=== PATIENT | male | born 1965 | race Caucasian/White ===

== ENCOUNTER 2018-02-23 13:04 | Inpatient (IN) ==
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
[2018-02-23] MEDS ORDERED: Acetaminophen 325 MG Tablet PO PRN (19:37)
[2018-02-23] MEDS: Morphine Sulfate Inj 2 MG/ML Vial IV.PUSH PRN (20:41)
[2018-02-23] MEDS: Lisinopril 5 MG Tablet PO SCH (20:43)
[2018-02-23] MEDS: Sod Chloride 0.9% Inj 1,000 ML IV.CONT SCH (20:43)
[2018-02-23] MEDS: Senna/Docusate Sodium 8.6/50 MG Tablet PO SCH (20:43)
[2018-02-23] MEDS: Piperacil/Tazo 3.375 GM Premix 50 ML IV.SIG SCH (21:59)
[2018-02-24] MEDS ORDERED: Metoprolol Tartrate 25 MG Tablet PO ONE (02:24)
[2018-02-24] MEDS ORDERED: Chlorhexidine Gluconate 2% 1 Pack (2 Cloths) TOPICAL ONE (02:24)
[2018-02-24] MEDS ORDERED: Sodium Chlor 0.9% Inj 500 ML IV.SIG SCH (03:00)
[2018-02-24] MEDS: Morphine Sulfate Inj 2 MG/ML Vial IV.PUSH PRN ×2 (03:09→08:34)
[2018-02-24] MEDS: Piperacil/Tazo 3.375 GM Premix 50 ML IV.SIG SCH ×3 (03:09→15:40)
[2018-02-24] MEDS: Sod Chloride 0.9% Inj 1,000 ML IV.CONT SCH ×3 (03:10→13:17)
[2018-02-24 05:39] LABS: Baso # (Auto) 0.1 th/mm3 (0.0-0.2); Baso % (Auto) 0.6 % (0.0-2.0); Eos # (Auto) 0.1 th/mm3 (0.0-0.4); Eos % (Auto) 0.5 % (0.0-4.0); Hematocrit 40.4 % (39.0-51.0); Hemoglobin 13.8 gm/dL (13.0-17.0); Lymph # (Auto) 1.1 th/mm3 (1.0-4.8); Lymph % (Auto) 9.8 % (9.0-44.0); Mean Corpuscular Hemoglobin 31.1 pg (27.0-34.0); Mean Corpuscular Volume 91.4 fL (80.0-100.0); Mean Platelet Volume 8.3 fL (7.0-11.0); Mono # (Auto) 0.9 th/mm3 (0.0-0.9); Mono % (Auto) 8.6 % (0.0-8.0); Neut # (Auto) 8.9 th/mm3 (1.8-7.7); Neut % (Auto) 80.5 % (16.0-70.0); Platelet Count 176 th/mm3 (150-450); Red Blood Count 4.43 mil/mm3 (4.50-5.90); Red Cell Distribution Width 14.2 % (11.6-17.2); White Blood Count 11.1 th/mm3 (4.0-11.0)
[2018-02-24 06:12] LABS: Albumin 3.1 g/dL (3.4-5.0); Anion Gap 12 meq/L (5-15); Aspartate Aminotransferase 17 U/L (15-37); Blood Urea Nitrogen 15 mg/dL (7-18); Calcium 8.1 mg/dL (8.5-10.1); Carbon Dioxide 21.4 meq/L (21.0-32.0); Chloride 110 meq/L (98-107); Glomerular Filtration Rate 84 mL/min (>89); Glucose,Random 102 mg/dL (74-106); Potassium 3.8 meq/L (3.5-5.1); Sodium 143 meq/L (136-145)
[2018-02-24 06:14] LABS: Alanine Aminotransferase 31 U/L (12-78)
[2018-02-24 06:16] LABS: Alkaline Phosphatase 70 U/L (45-117); Total Protein 6.7 g/dL (6.4-8.2)
[2018-02-24] MEDS: Baclofen 10 MG Tablet PO SCH ×3 (08:31→17:12)
[2018-02-24] MEDS: Gabapentin 100 MG Capsule PO SCH ×3 (08:31→17:12)
[2018-02-24] MEDS: Senna/Docusate Sodium 8.6/50 MG Tablet PO SCH ×2 (08:32→20:17)
[2018-02-24] MEDS: Lisinopril 5 MG Tablet PO SCH ×2 (08:33→20:17)
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
[2018-02-24] MEDS ORDERED: Morphine Inj 4 MG/ML Vial IV.PUSH ONE (11:00)
--- NOTE | 2018-02-24 11:33 | P.CONGI ---
History of Present Illness Consult date: 02/24/18 Consult reason: Hyperbilirubinemia ultrasound of the gallbladder abnormal. Chief complaint: ABD PAIN History of Present Illness: This is a 53-year-old male who came to the hospital on 02/23/2018 with right upper quadrant abdominal pain for the past 3 days. Patient states that he was in his usual state of health up until this point and he had acute onset of pressure sensation which he describes as feeling "locked up". He also denies any bowel movement for the past 3 days and is positive for some fever and chills. Patient denies any obvious bleeding, hematemesis or dyspepsia but does note some nausea without vomiting. According to the patient and the record he has a history of a left CVA with right sided paralysis and his fair to poor historian with some of his timing and situation. Patient initially stated not passing gas but then notes that he is passing small amounts. He also was on Coumadin therapy but stopped taking medications approximately 4 months ago due to the fact that he was taking way too many meds. Current labs show WBC count with mild leukocytosis, 11.1, hemoglobin 13.8, bilirubin 2.2, AST [address] scan shows possible cholecystitis and surgical consult is pending. Patient states EGD around 2001 but no previous colonoscopy and states that he refuses to have one. Patient has no family history of colon cancer. There is currently no family in the room but according to the record there is a girlfriend who has been assisting in his care. Gastroenterology was consulted to assist with his abnormal gallbladder ultrasound as well as hyperbilirubinemia. <Mellissa Iqbal - Last Filed: 02/24/18 11:21> Review of Systems All other systems reviewed negative except as stated in HPI <Mellissa Iqbal - Last Filed: 02/24/18 11:21> PMFSH - History History Provided By: Patient - Medical History Medical History: Medical History (Last Reviewed 02/24/18 @ 09:09 by YAMILE Christianson) CVA (cerebral vascular accident) HTN (hypertension) Myocardial infarct - Surgical History Surgical History: Surgical History (Last Reviewed 02/24/18 @ 09:09 by YAMILE Christianson) History of surgery of liver - Tobacco History Second Hand Smoke Exposure: No Smoking Status: Never smoker - Alcohol History How Often Do You Have a Drink Containing Alcohol: Never - Substance Use History Substance History: No History of Abuse <Mellissa Iqbal - Last Filed: 02/24/18 11:21> - Medical History Medical History: Medical History (Last Reviewed 02/24/18 @ 09:09 by YAMILE Christianson) CVA (cerebral vascular accident) HTN (hypertension) Myocardial infarct - Surgical History Surgical History: Surgical History (Last Reviewed 02/24/18 @ 09:09 by YAMILE Christianson) History of surgery of liver <Darnell Edmond - Last Filed: 02/24/18 16:06> Medications and Allergies Active Medications: Active Medications Acetaminophen (Tylenol) 650 mg PO Q4H PRN PRN Reason: Temp > 100.4 Baclofen (Lioresal) 5 mg PO TID [facility] Last Admin: 02/24/18 08:31 Dose: 5 mg Carvedilol (Coreg) 3.125 mg PO BID [facility] Last Admin: 02/24/18 08:33 Dose: 3.125 mg Enalaprilat (Vasotec Inj) 1.25 mg IV.PUSH Q8H PRN PRN Reason: SBP>180, DBP>95 Gabapentin (Neurontin) 100 mg PO TID [facility] Last Admin: 02/24/18 08:31 Dose: 100 mg Sodium Chloride (Ns Inj) 1,000 mls @ 130 mls/hr IV.CONT .Q7H42M [facility] Last Admin: 02/24/18 08:30 Dose: Not Given Piperacillin/Tazobactam/Dextrose (Zosyn 3.375 Gm Premix) 50 mls @ 100 mls/hr IV.SIG Q6H [facility] Last Infusion: 02/24/18 10:37 Dose: Infused Lactated Ringer's (Lr 1000 Ml Inj) 1,000 mls @ 30 mls/hr IV.SIG .Q24H [facility] Stop: 02/25/18 02:29 Last Admin: 02/24/18 03:11 Dose: Not Given Sodium Chloride (Ns Inj) 500 mls @ 30 mls/hr IV.SIG .Q10H [facility] Last Admin: 02/24/18 03:12 Dose: Not Given Lisinopril (Prinivil) 5 mg PO BID [facility] Last Admin: 02/24/18 08:33 Dose: 5 mg Morphine Sulfate (Morphine Inj) 2 mg IV.PUSH Q4H PRN PRN Reason: PAIN SCALE 7 TO 10 SEVERE Last Admin: 02/24/18 08:34 Dose: 2 mg Ondansetron HCl (Zofran Inj) 4 mg IV.PUSH Q6H PRN PRN Reason: NAUSEA OR VOMITING Last Admin: 02/23/18 20:42 Dose: 4 mg Senna/Docusate Sodium (Evangelina-Colace) 1 tab PO BID [facility] Last Admin: 02/24/18 08:32 Dose: 1 tab <Mellissa Iqbal M - Last Filed: 02/24/18 11:21> Active Medications: Active Medications Acetaminophen (Tylenol) 650 mg PO Q4H PRN PRN Reason: Temp > 100.4 Baclofen (Lioresal) 5 mg PO TID [facility] Last Admin: 02/24/18 13:14 Dose: Not Given Carvedilol (Coreg) 3.125 mg PO BID [facility] Last Admin: 02/24/18 08:33 Dose: 3.125 mg Enalaprilat (Vasotec Inj) 1.25 mg IV.PUSH Q8H PRN PRN Reason: SBP>180, DBP>95 Last Admin: 02/24/18 15:41 Dose: 1.25 mg Gabapentin (Neurontin) 100 mg PO TID [facility] Last Admin: 02/24/18 13:18 Dose: Not Given Sodium Chloride (Ns Inj) 1,000 mls @ 130 mls/hr IV.CONT .Q7H42M [facility] Last Admin: 02/24/18 13:17 Dose: 100 mls/hr Piperacillin/Tazobactam/Dextrose (Zosyn 3.375 Gm Premix) 50 mls @ 100 mls/hr IV.SIG Q6H [facility] Last Admin: 02/24/18 15:40 Dose: 100 mls/hr Lactated Ringer's (Lr 1000 Ml Inj) 1,000 mls @ 30 mls/hr IV.SIG .Q24H [facility] Stop: 02/25/18 02:29 Last Admin: 02/24/18 03:11 Dose: Not Given Sodium Chloride (Ns Inj) 500 mls @ 30 mls/hr IV.SIG .Q10H [facility] Last Admin: 02/24/18 03:12 Dose: Not Given Lisinopril (Prinivil) 5 mg PO BID [facility] Last Admin: 02/24/18 08:33 Dose: 5 mg Morphine Sulfate (Morphine Inj) 4 mg IV.PUSH Q4H PRN PRN Reason: Pain 7 to 10 Last Admin: 02/24/18 15:41 Dose: 4 mg Morphine Sulfate (Morphine Inj) 2 mg IV.PUSH Q4H PRN PRN Reason: Pain 3 to 6 Ondansetron HCl (Zofran Inj) 4 mg IV.PUSH Q6H PRN PRN Reason: NAUSEA OR VOMITING Last Admin: 02/23/18 20:42 Dose: 4 mg Senna/Docusate Sodium (Evangelina-Colace) 1 tab PO BID [facility] Last Admin: 02/24/18 08:32 Dose: 1 tab <Darnell Edmond - Last Filed: 02/24/18 16:06> Allergies Allergy/AdvReac Type Severity Reaction Status Date / Time No Known Allergies Allergy Unverified 02/23/18 13:12 Home Medications Medication Instructions Recorded Confirmed Type atorvastatin 40 mg PO DAILY 02/23/18 02/23/18 History baclofen 5 mg PO TID 02/23/18 02/23/18 History carvedilol 3.125 mg PO BID 02/23/18 02/23/18 History fluoxetine 40 mg PO DAILY 02/23/18 02/23/18 History gabapentin 100 mg PO TID 02/23/18 02/23/18 History lisinopril 5 mg PO BID 02/23/18 02/23/18 History warfarin 4 mg PO DAILY 02/23/18 02/23/18 History Exam Vital signs: Vital Signs 02/23/18 17:30 02/23/18 20:00 02/24/18 00:00 Temperature 97.8 F 97.4 F L 97.4 F L Pulse Rate 108 H 106 H 87 Respiratory Rate 20 18 18 Blood Pressure 185/108 H 166/98 H 149/87 H Pulse Oximetry 95 97 97 02/24/18 04:00 02/24/18 08:00 Temperature 97.4 F L 99.4 F Pulse Rate 88 102 H Respiratory Rate 18 20 Blood Pressure 142/84 H 160/96 H Pulse Oximetry 97 92 L Intake & Output 09/03/18 09/04/18 09/04/18 18:59 06:59 18:59 Intake Total 1100 / 1100 50 / 50 Balance 1100 / 1100 50 / 50 Weight 86.5 kg Intake: IV 1100 / 1100 50 / 50 NS Inj 1,000 ML @ 130 mls/hr IV 1000 / 1000 .CONT .Q7H42M [facility] Rx#:[id number] Zosyn 3.375 GM Premix 50 ML @ 100 / 100 50 / 50 100 mls/hr IV.SIG Q6H [facility] Rx#: [id number] Other: # Voids 2 Weight On Admission 86.5 kg - Constitutional mild distress, obese, disheveled - Routine HEENT Exam ENT: Present: mucous membranes dry - Routine Respiratory Exam Present: accessory muscle use (Even, unlabored at rest) - Routine Cardiovascular Exam Present: S1, S2 - Routine Abdominal Exam Present: distended (Mild, tall, soft bowel sounds all 4 quadrants, right upper quadrant tenderness to light palpation) <Mellissa Iqbal - Last Filed: 02/24/18 11:21> Vital signs: Vital Signs 02/23/18 17:30 02/23/18 20:00 02/24/18 00:00 Temperature 97.8 F 97.4 F L 97.4 F L Pulse Rate 108 H 106 H 87 Respiratory Rate 20 18 18 Blood Pressure 185/108 H 166/98 H 149/87 H Pulse Oximetry 95 97 97 02/24/18 04:00 02/24/18 08:00 02/24/18 12:00 Temperature 97.4 F L 99.4 F 98.2 F Pulse Rate 88 102 H 103 H Respiratory Rate 18 20 20 Blood Pressure 142/84 H 160/96 H 174/98 H Pulse Oximetry 97 92 L 92 L Intake & Output 02/23/18 02/24/18 02/24/18 18:59 06:59 18:59 Intake Total 1100 / 1100 1050 / 1050 Balance 1100 / 1100 1050 / 1050 Weight 86.5 kg Intake: IV 1100 / 1100 1050 / 1050 NS Inj 1,000 ML @ 130 mls/hr IV 1000 / 1000 1000 / 1000 .CONT .Q7H42M [facility] Rx#:[id number] Zosyn 3.375 GM Premix 50 ML @ 100 / 100 50 / 50 100 mls/hr IV.SIG Q6H [facility] Rx#: [id number] Other: # Voids 2 Weight On Admission 86.5 kg <FeliRhodajason Shannon - Last Filed: 02/24/18 16:06> Results - Labs CBC & Chem 7: 02/24/18 04:13 02/24/18 04:13 Labs: Laboratory Results - last 24 hr 02/24/18 02/24/18 04:13 04:13 WBC 11.1 H RBC 4.43 L Hgb 13.8 D Hct 40.4 MCV 91.4 MCH 31.1 MCHC 34.0 RDW 14.2 Plt Count 176 MPV 8.3 Neut % (Auto) 80.5 H Lymph % (Auto) 9.8 [place] % (Auto) 8.6 H Eos % (Auto) 0.5 Baso % (Auto) 0.6 Neut # (Auto) 8.9 H Lymph # (Auto) 1.1 [place] # (Auto) 0.9 Eos # (Auto) 0.1 Baso # (Auto) 0.1 WBC Differential . Differential Comment Auto diff final Sodium 143 Potassium 3.8 Chloride 110 H Carbon Dioxide 21.4 Anion Gap 12 BUN 15 Creatinine 0.93 Estimated GFR 84 L Random Glucose 102 Calcium 8.1 L Total Bilirubin 2.2 H AST 17 ALT 31 Alkaline Phosphatase 70 Total Protein 6.7 D Albumin 3.1 L <Mellissa Iqbal - Last Filed: 02/24/18 11:21> - Labs CBC & Chem 7: 02/24/18 04:13 02/24/18 04:13 Labs: Laboratory Results - last 24 hr 02/24/18 02/24/18 04:13 04:13 WBC 11.1 H RBC 4.43 L Hgb 13.8 D Hct 40.4 MCV 91.4 MCH 31.1 MCHC 34.0 RDW 14.2 Plt Count 176 MPV 8.3 Neut % (Auto) 80.5 H Lymph % (Auto) 9.8 [place] % (Auto) 8.6 H Eos % (Auto) 0.5 Baso % (Auto) 0.6 Neut # (Auto) 8.9 H Lymph # (Auto) 1.1 [place] # (Auto) 0.9 Eos # (Auto) 0.1 Baso # (Auto) 0.1 WBC Differential . Differential Comment Auto diff final Sodium 143 Potassium 3.8 Chloride 110 H Carbon Dioxide 21.4 Anion Gap 12 BUN 15 Creatinine 0.93 Estimated GFR 84 L Random Glucose 102 Calcium 8.1 L Total Bilirubin 2.2 H AST 17 ALT 31 Alkaline Phosphatase 70 Total Protein 6.7 D Albumin 3.1 L - Imaging Impressions Cholangiopancreatography MRI 02/24/18 00:00 CONCLUSION: 1. The gallbladder is mildly distended with some gallbladder wall thickening. No adjacent inflammatory changes are demonstrated. 2. No definite gallstones or biliary tract obstruction. 3. The rest the examination is grossly unremarkable. <Darnell Edmond - Last Filed: 02/24/18 16:06> Assessment and Plan (1) Right upper quadrant abdominal pain Status: Acute Code(s): R10.11 - Right upper quadrant pain (2) Abnormal CT scan, gallbladder Status: Acute Code(s): R93.2 - Abnormal findings on diagnostic imaging of liver and biliary tract (3) Cholecystitis Status: Acute Code(s): K81.9 - Cholecystitis, unspecified - Plan right upper quadrant abdominal pain for the past 3 days. Patient states that he was in his usual state of health up until this point and he had acute onset of pressure sensation which he describes as feeling "locked up". He also denies any bowel movement for the past 3 days and is positive for some fever and chills. Constipation, acute no bowel movement in the last 3 days patient denies any obvious bleeding, hematemesis or dyspepsia but does note some nausea without vomiting. history of a left CVA with right sided paralysis and his fair to poor historian with some of his timing and situation. Patient initially stated not passing gas but then notes that he is passing small amounts. He also was on Coumadin therapy but stopped taking medications approximately 4 months ago due to the fact that he was taking way too many meds. Current labs show WBC count with mild leukocytosis, 11.1, hemoglobin 13.8, bilirubin 2.2, AST [address] scan shows possible cholecystitis and surgical consult is pending. Patient states EGD around 2001 but no previous colonoscopy and states that he refuses to have one. Patient has no family history of colon cancer. There is currently no family in the room but according to the record there is a girlfriend who has been assisting in his care. Gastroenterology was consulted to assist with his abnormal gallbladder ultrasound as well as hyperbilirubinemia. Cholelithiasis, abnormal ultrasound gallbladder possible cholecystitis. Could be related to stones, possibly impacted. Appreciate GS consult. Hyperbilirubinemia, possibly related to obstruction Plan Diet per attending, recommend clear liquids for now MRCP pending Zofran Zosyn per attending Monitor labs with special attention to bilirubin and hemoglobin as well as WBC count. Further recommendations to follow after MRCP patient may need ERCP Patient was seen per myself and Dr. Edmond, note was written on his behalf <Mellissa Iqbal - Last Filed: 02/24/18 11:21> (1) Right upper quadrant abdominal pain Status: Acute Code(s): R10.11 - Right upper quadrant pain (2) Abnormal CT scan, gallbladder Status: Acute Code(s): R93.2 - Abnormal findings on diagnostic imaging of liver and biliary tract (3) Cholecystitis Status: Acute Code(s): K81.9 - Cholecystitis, unspecified - Attending Attestation Seen and examined, plan as above, will follow up with you. Will check MRCP results. Further recommendations to follow. <Darnell Edmond - Last Filed: 02/24/18 16:06>
[2018-02-24] MEDS ORDERED: Morphine Inj 4 MG/ML Vial IV.PUSH PRN (12:12)
--- NOTE | 2018-02-24 12:13 | ECG ---
Date Performed: 02/24/2018 Time Performed: 10:15:31 PTAGE: 53 years EKG: SINUS TACHYCARDIA WITH FIRST DEGREE AV BLOCK RIGHT ATRIAL ENLARGEMENT LEFT ATRIAL ENLARGEME NT NONSPECIFIC INTRAVENTRICULAR CONDUCTION DELAY RIGHT AXIS DEVIATION ABNORMAL ECG NO PREVIOUS TRACING DOCTOR: Oscar Le Interpretating Date/Time 02/24/2018 12:12:16
--- NOTE | 2018-02-24 12:18 | P.PNIM ---
Subjective Interval history: Patient's primary complaint is right upper quadrant abdominal pain. Ultrasound gallbladder pending. No nausea or vomiting. No appetite. Physical Exam Vital signs: Vital Signs 02/23/18 17:30 02/23/18 20:00 02/24/18 00:00 Temperature 97.8 F 97.4 F L 97.4 F L Pulse Rate 108 H 106 H 87 Respiratory Rate 20 18 18 Blood Pressure 185/108 H 166/98 H 149/87 H Pulse Oximetry 95 97 97 02/24/18 04:00 02/24/18 08:00 Temperature 97.4 F L 99.4 F Pulse Rate 88 102 H Respiratory Rate 18 20 Blood Pressure 142/84 H 160/96 H Pulse Oximetry 97 92 L Intake & Output 02/23/18 02/24/18 02/24/18 18:59 06:59 18:59 Intake Total 1100 / 1100 50 / 50 Balance 1100 / 1100 50 / 50 Weight 86.5 kg Intake: IV 1100 / 1100 50 / 50 NS Inj 1,000 ML @ 130 mls/hr IV 1000 / 1000 .CONT .Q7H42M [facility] Rx#:[id number] Zosyn 3.375 GM Premix 50 ML @ 100 / 100 50 / 50 100 mls/hr IV.SIG Q6H [facility] Rx#: [id number] Other: # Voids 2 Weight On Admission 86.5 kg Narrative: GENERAL: NAD, A&Ox3 HEAD: Normocephalic. NECK: Supple, trachea midline. No lymphadenopathy. EYES: No scleral icterus. No injection or drainage. CARDIOVASCULAR: Regular rate and rhythm without murmurs, gallops, or rubs. RESPIRATORY: Breath sounds equal bilaterally. No accessory muscle use. GASTROINTESTINAL: Abdomen soft, nondistended. Right upper quadrant abdominal pain with tenderness. MUSCULOSKELETAL: No cyanosis, or edema. SKIN: Warm and dry. NEURO: No focal neurological deficits. Results - Labs CBC & Chem 7: 02/24/18 04:13 02/24/18 04:13 Laboratory Results - last 24 hr 02/24/18 02/24/18 04:13 04:13 WBC 11.1 H RBC 4.43 L Hgb 13.8 D Hct 40.4 MCV 91.4 MCH 31.1 MCHC 34.0 RDW 14.2 Plt Count 176 MPV 8.3 Neut % (Auto) 80.5 H Lymph % (Auto) 9.8 [place] % (Auto) 8.6 H Eos % (Auto) 0.5 Baso % (Auto) 0.6 Neut # (Auto) 8.9 H Lymph # (Auto) 1.1 [place] # (Auto) 0.9 Eos # (Auto) 0.1 Baso # (Auto) 0.1 WBC Differential . Differential Comment Auto diff final Sodium 143 Potassium 3.8 Chloride 110 H Carbon Dioxide 21.4 Anion Gap 12 BUN 15 Creatinine 0.93 Estimated GFR 84 L Random Glucose 102 Calcium 8.1 L Total Bilirubin 2.2 H AST 17 ALT 31 Alkaline Phosphatase 70 Total Protein 6.7 D Albumin 3.1 L Assessment and Plan - Assessment (1) Right upper quadrant abdominal pain Code(s): R10.11 - Right upper quadrant pain Status: Acute (2) Abnormal CT scan, gallbladder Code(s): R93.2 - Abnormal findings on diagnostic imaging of liver and biliary tract Status: Acute (3) CVA, old, dysarthria Code(s): I69.322 - Dysarthria following cerebral infarction Status: Chronic (4) Cardiac disease Code(s): I51.9 - Heart disease, unspecified Status: Chronic (5) HTN (hypertension) Code(s): I10 - Essential (primary) hypertension Status: Chronic - Plan 53-year-old male admitted secondary right upper quadrant abdominal pain Right upper quadrant abdominal pain SIRS Suspected cholecystitis Leukocytosis Surgeons following GI following Continue Zosyn Continue IV fluids Morphine for pain Ultrasound of gallbladder pending HIDA scan pending History of CVA Right hemiplegia Supportive care Continue baseline treatments including baclofen and gabapentin Therapy consulted Cardiomyopathy Left bundle branch block Follow on telemetry Continue lisinopril and carvedilol Patient has been noncompliant with Coumadin Hypertension Continue baseline treatment Follow blood pressures Adjust treatments as needed DVT prophylaxis SCD's (5) HTN (hypertension) Qualifiers: Hypertension type: essential hypertension Qualified Code(s): I10 - Essential (primary) hypertension
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
[2018-02-24] MEDS: Morphine Inj 4 MG/ML Vial IV.PUSH PRN ×2 (15:41→20:18)
[2018-02-25] MEDS: Morphine Inj 4 MG/ML Vial IV.PUSH PRN ×4 (00:05→20:37)
[2018-02-25] MEDS: Piperacil/Tazo 3.375 GM Premix 50 ML IV.SIG SCH ×5 (00:07→21:48)
[2018-02-25] MEDS: Sod Chloride 0.9% Inj 1,000 ML IV.CONT SCH ×4 (00:07→20:31)
[2018-02-25 08:15] LABS: Baso % (Auto) 0.2 % (0.0-2.0); Eos # (Auto) 0.1 th/mm3 (0.0-0.4); Eos % (Auto) 0.9 % (0.0-4.0); Hematocrit 37.7 % (39.0-51.0); Lymph # (Auto) 0.9 th/mm3 (1.0-4.8); Lymph % (Auto) 9.2 % (9.0-44.0); Mean Corpuscular HGB Conc 34.5 % (32.0-36.0); Mean Platelet Volume 8.4 fL (7.0-11.0); Mono # (Auto) 0.9 th/mm3 (0.0-0.9); Mono % (Auto) 8.8 % (0.0-8.0); Neut # (Auto) 8.3 th/mm3 (1.8-7.7); Neut % (Auto) 80.9 % (16.0-70.0); Platelet Count 165 th/mm3 (150-450); Red Blood Count 4.19 mil/mm3 (4.50-5.90); Red Cell Distribution Width 14.4 % (11.6-17.2); White Blood Count 10.2 th/mm3 (4.0-11.0)
[2018-02-25] MEDS: Baclofen 10 MG Tablet PO SCH ×3 (08:16→18:26)
[2018-02-25] MEDS: Lisinopril 5 MG Tablet PO SCH ×2 (08:16→20:29)
[2018-02-25] MEDS: Senna/Docusate Sodium 8.6/50 MG Tablet PO SCH ×2 (08:16→20:30)
[2018-02-25] MEDS: Gabapentin 100 MG Capsule PO SCH ×3 (08:16→18:27)
[2018-02-25 08:46] LABS: Alanine Aminotransferase 27 U/L (12-78); Albumin 2.6 g/dL (3.4-5.0); Anion Gap 11 meq/L (5-15); Aspartate Aminotransferase 15 U/L (15-37); Blood Urea Nitrogen 15 mg/dL (7-18); Calcium 7.5 mg/dL (8.5-10.1); Carbon Dioxide 23.4 meq/L (21.0-32.0); Chloride 108 meq/L (98-107); Glomerular Filtration Rate Greater Than 89 mL/min (>89); Glucose,Random 95 mg/dL (74-106); Potassium 3.6 meq/L (3.5-5.1); Sodium 142 meq/L (136-145)
[2018-02-25 08:48] LABS: Alkaline Phosphatase 58 U/L (45-117); Total Protein 6.2 g/dL (6.4-8.2)
[2018-02-25] MEDS ORDERED: Bupivacaine/Epinephrine Inj 0.25% 50 ML Vial ONE (09:05)
[2018-02-25] MEDS ORDERED: fentaNYL Citrate Inj 100 MCG/2 ML Ampul ONE (09:18)
[2018-02-25] MEDS ORDERED: Lidocaine PF 1% Inj 5 ML Syringe INFILTRATN ONE (10:30)
[2018-02-25] MEDS ORDERED: Lidocaine PF 1% Inj 5 ML Vial ONE (10:30)
[2018-02-25] MEDS ORDERED: Phenylephrine/NS 1000 MCG/10ML Syringe IV.PUSH ONE (10:30)
[2018-02-25] MEDS ORDERED: Neostigmine Inj 5 MG/5 ML Syringe IV.PUSH ONE (12:00)
[2018-02-25] MEDS ORDERED: Glycopyrrolate Inj 1 MG/5 ML Syringe IV.PUSH ONE (12:00)
--- NOTE | 2018-02-25 12:42 | MP ---
cc: Cedric Knox MD DATE OF OPERATION: 02/25/2018 PREOPERATIVE DIAGNOSES: 1. Acute cholecystitis. 2. Umbilical hernia. 3. Elevated total bilirubin with normal magnetic resonance cholangiopancreatography. POSTOPERATIVE DIAGNOSES: 1. Acute cholecystitis. 2. Umbilical hernia. 3. Elevated total bilirubin with normal magnetic resonance cholangiopancreatography. PROCEDURE PERFORMED: 1. Laparoscopic cholecystectomy. 2. Primary umbilical hernia repair. 3. Liver biopsy. SURGEON: Cedric Knox MD ANESTHESIA: General endotracheal. COMPLICATIONS: None. ESTIMATED BLOOD LOSS: 20 mL INDICATIONS FOR PROCEDURE: Mr. Mckeon is a pleasant 53-year-old gentleman who presented to [facility] with complaints of epigastric, right upper quadrant abdominal pain. He was worked up and found to have acute cholecystitis by imaging. He was noted to have elevated total bilirubin. The bilirubin was 1.8, it climbed up to 2.2. He had an MRCP, which demonstrated no evidence of biliary obstruction. Because of this, I recommended a liver biopsy to figure out why his bilirubin was continuing to climb. Risks and benefits of a laparoscopic cholecystectomy, umbilical hernia repair and liver biopsy was discussed with him. He was agreeable. DETAILS OF PROCEDURE: The patient was identified, brought to the operating room, placed supine on the operating table. After adequate general endotracheal anesthesia was achieved, the abdomen was prepped and draped in standard surgical fashion. Infraumbilical space was anesthetized with 0.25% Marcaine. Infraumbilical incision was made. Dissection was carried down through subcutaneous tissue and the umbilical hernia sac. Umbilical hernia sac was then opened. The finger was then placed in the peritoneal cavity without difficulty. Balloon trocar was inserted and the abdomen was insufflated to 15 mmHg using CO2 gas. Next, two 5 mm trocars were placed in the right upper quadrant after anesthetizing skin and subcutaneous tissue with 0.25% Marcaine. A distended erythematous gallbladder was immediately identified. The gallbladder was noted to have a significant omental adhesions on the underside, indicating acute inflammatory change. These were taken down with blunt and electrocautery dissection. Gallbladder was then clearly visualized. Gallbladder neck was then carefully dissected. Cystic artery and cystic duct were dissected out; clearly identified in 2 planes. Once they were confirmed in 2 planes, they were clipped twice proximally, once distally and then divided. Gallbladder was then dissected out of the hepatic fossa using electrocautery Bovie. Liver bed was slightly oozy due to the acute inflammatory nature of the gallbladder. Gallbladder was removed and placed into an Endopouch bag and brought out through the infraumbilical port. Gallbladder was inspected and noted to be distended, edematous, erythematous and clips were in place in the cystic duct stump was without evidence of leakage of bile. Gallbladder was sent to pathology for analysis. Next, the abdominal cavity was re-visualized. Bleeding points in the liver were controlled with electrocautery Bovie. The abdominal cavity was then rinsed out with normal saline solution. Benny procoagulant was then placed into the liver bed and there was no evidence of bleeding through the Benny. Clips were inspected on the cystic artery and cystic duct stump. There was no evidence of leakage of bile and no bleeding. Next, the biopsy gun was used to perform a core needle biopsy of the right lobe of the liver. This was performed through one of the 5 mm port sites. Biopsy site bleeding was controlled with electrocautery Bovie. Specimen was sent to pathology for analysis. Next abdominal cavity was visualized. No gross abnormalities were then noted. Biopsy site was reinspected and there was no evidence of bleeding. The liver bed was inspected. There was no evidence of bleeding. All ports were then removed under direct vision. Attention was now directed to repair the umbilical hernia. Umbilical hernia sac was dissected off and excised. The fascia was cleaned off circumferentially. Fascia was then closed primarily using a 0-Prolene suture, interrupted x3. Subcutaneous tissue was then irrigated, injected with additional local anesthetic and then skin was closed with 4-0 Vicryl. The patient tolerated the procedure well, was awakened and brought to the recovery room in stable condition. Cedric MD NATALIE Mauricio/gretchen , 12:23 PM , 12:31 PM
[2018-02-25] MEDS ORDERED: *morphine SULFATE 4 MG/ML PERIprocedure ONLY ONE ×2 (13:28→13:38)
[2018-02-25] MEDS ORDERED: *Meperidine Inj 25 MG/ML Vial PERIprocedural Use ONLY ONE (13:47)
--- NOTE | 2018-02-25 17:10 | P.PNIM ---
Subjective Interval history: Patient is status post cholecystectomy. He is lethargic postop but doing well otherwise. No complaints. Clinical status discussed with his . Physical Exam Vital signs: Vital Signs 02/24/18 17:51 02/24/18 18:43 02/24/18 20:00 Temperature 97.3 F L Pulse Rate 107 H 109 H Respiratory Rate 18 Blood Pressure 174/94 H 166/102 H Pulse Oximetry 93 L 95 02/25/18 00:00 02/25/18 04:00 02/25/18 08:00 Temperature 99.4 F 98.2 F 98.0 F Pulse Rate 108 H 94 H 104 H Respiratory Rate 18 18 19 Blood Pressure 164/99 H 160/90 H 151/103 H Pulse Oximetry 93 L 95 91 L 02/25/18 09:44 02/25/18 12:33 02/25/18 12:45 Temperature 98.4 F Pulse Rate 84 75 Respiratory Rate 20 22 Blood Pressure 141/82 H 128/79 Pulse Oximetry 93 L 93 L 94 L 02/25/18 13:00 02/25/18 13:15 02/25/18 13:30 Temperature Pulse Rate 71 74 86 Respiratory Rate 20 19 20 Blood Pressure 129/77 141/84 H 152/94 H Pulse Oximetry 96 97 95 02/25/18 13:31 02/25/18 13:40 02/25/18 13:45 Temperature Pulse Rate 85 Respiratory Rate 14 16 20 Blood Pressure 135/81 Pulse Oximetry 93 L 02/25/18 14:00 Temperature 98 F Pulse Rate 75 Respiratory Rate 18 Blood Pressure 130/76 Pulse Oximetry 96 Intake & Output 02/24/18 02/25/18 02/25/18 18:59 06:59 18:59 Intake Total 1100 / 1100 1100 / 1100 2800 / 2800 Output Total 20 / 20 Balance 1100 / 1100 1100 / 1100 2780 / 2780 Weight 86.5 kg Intake: IV 1100 / 1100 1100 / 1100 2100 / 2100 NS Inj 1,000 ML @ 130 mls/hr IV 1000 / 1000 1000 / 1000 1000 / 1000 .CONT .Q7H42M [facility] Rx#:[id number] LR 1000 mL Inj 1,000 ML @ 30 1000 / 1000 mls/hr IV.SIG .Q24H [facility] Rx#: [id number] Zosyn 3.375 GM Premix 50 ML @ 100 / 100 100 / 100 100 / 100 100 mls/hr IV.SIG Q6H [facility] Rx#: [id number] Oral 0 / 0 Anesthesia Amount 700 / 700 Output: Estimated Blood Loss 20 / 20 Other: # Voids 3 2 # Incontinent Voids 1 # Bowel Movements 0 Narrative: GENERAL: NAD, A&Ox3 HEAD: Normocephalic. NECK: Supple, trachea midline. No lymphadenopathy. EYES: No scleral icterus. No injection or drainage. CARDIOVASCULAR: Regular rate and rhythm without murmurs, gallops, or rubs. RESPIRATORY: Breath sounds equal bilaterally. No accessory muscle use. GASTROINTESTINAL: Abdomen soft, nondistended. Postop abdominal wounds. Hypoactive bowel sounds postop. MUSCULOSKELETAL: No cyanosis, or edema. SKIN: Warm and dry. NEURO: No focal neurological deficits. Results - Labs CBC & Chem 7: 02/25/18 05:43 02/25/18 05:43 Laboratory Results - last 24 hr 02/25/18 02/25/18 05:43 05:43 WBC 10.2 RBC 4.19 L Hgb 13.0 Hct 37.7 L MCV 90.0 MCH 31.0 MCHC 34.5 RDW 14.4 Plt Count 165 MPV 8.4 Neut % (Auto) 80.9 H Lymph % (Auto) 9.2 [place] % (Auto) 8.8 H Eos % (Auto) 0.9 Baso % (Auto) 0.2 Neut # (Auto) 8.3 H Lymph # (Auto) 0.9 L [place] # (Auto) 0.9 Eos # (Auto) 0.1 Baso # (Auto) 0.0 WBC Differential . Differential Comment Auto diff final Sodium 142 Potassium 3.6 Chloride 108 H Carbon Dioxide 23.4 Anion Gap 11 BUN 15 Creatinine 0.80 Estimated GFR Greater than 89 Random Glucose 95 Calcium 7.5 L Total Bilirubin 2.6 H AST 15 ALT 27 Alkaline Phosphatase 58 Total Protein 6.2 L Albumin 2.6 L Assessment and Plan - Assessment (1) Right upper quadrant abdominal pain Code(s): R10.11 - Right upper quadrant pain Status: Acute (2) Abnormal CT scan, gallbladder Code(s): R93.2 - Abnormal findings on diagnostic imaging of liver and biliary tract Status: Acute (3) CVA, old, dysarthria Code(s): I69.322 - Dysarthria following cerebral infarction Status: Chronic (4) Cardiac disease Code(s): I51.9 - Heart disease, unspecified Status: Chronic (5) HTN (hypertension) Code(s): I10 - Essential (primary) hypertension Status: Chronic - Plan 53-year-old male admitted secondary right upper quadrant abdominal pain Cholecystectomy performed 02/25/2018. Patient doing well postop. Pain control. Right upper quadrant abdominal pain SIRS cholecystitis Leukocytosis Status post cholecystectomy Surgeons following GI following Continue Zosyn Continue IV fluids Morphine for pain History of CVA Right hemiplegia Supportive care Continue baseline treatments including baclofen and gabapentin Therapy consulted Cardiomyopathy Left bundle branch block Follow on telemetry Continue lisinopril and carvedilol Patient has been noncompliant with Coumadin Hypertension Continue baseline treatment Follow blood pressures Adjust treatments as needed DVT prophylaxis SCD's (5) HTN (hypertension) Qualifiers: Hypertension type: essential hypertension Qualified Code(s): I10 - Essential (primary) hypertension
--- NOTE | 2018-02-25 18:18 | P.PNGI ---
Subjective Interval history: Patient is n.p.o. this a.m. plan for lap cholecystectomy today Monitoring labs current bilirubin 2.6 <Mellissa Iqbal - Last Filed: 02/25/18 18:16> Physical Exam Vital signs: Vital Signs 02/24/18 18:43 02/24/18 20:00 02/25/18 00:00 Temperature 97.3 F L 99.4 F Pulse Rate 107 H 109 H 108 H Respiratory Rate 18 18 Blood Pressure 174/94 H 166/102 H 164/99 H Pulse Oximetry 95 93 L 02/25/18 04:00 02/25/18 08:00 02/25/18 09:44 Temperature 98.2 F 98.0 F Pulse Rate 94 H 104 H Respiratory Rate 18 19 Blood Pressure 160/90 H 151/103 H Pulse Oximetry 95 91 L 93 L 02/25/18 12:33 02/25/18 12:45 02/25/18 13:00 Temperature 98.4 F Pulse Rate 84 75 71 Respiratory Rate 20 22 20 Blood Pressure 141/82 H 128/79 129/77 Pulse Oximetry 93 L 94 L 96 02/25/18 13:15 02/25/18 13:30 02/25/18 13:31 Temperature Pulse Rate 74 86 Respiratory Rate 19 20 14 Blood Pressure 141/84 H 152/94 H Pulse Oximetry 97 95 02/25/18 13:40 02/25/18 13:45 02/25/18 14:00 Temperature 98 F Pulse Rate 85 75 Respiratory Rate 16 20 18 Blood Pressure 135/81 130/76 Pulse Oximetry 93 L 96 02/25/18 16:00 Temperature 97.8 F Pulse Rate 83 Respiratory Rate 18 Blood Pressure 140/73 Pulse Oximetry 96 Intake & Output 02/24/18 02/25/18 02/25/18 18:59 06:59 18:59 Intake Total 1100 / 1100 1100 / 1100 3400 / 3400 Output Total 20 / 20 Balance 1100 / 1100 1100 / 1100 3380 / 3380 Weight 86.5 kg Intake: IV 1100 / 1100 1100 / 1100 2100 / 2100 NS Inj 1,000 ML @ 130 mls/hr IV 1000 / 1000 1000 / 1000 1000 / 1000 .CONT .Q7H42M [facility] Rx#:[id number] LR 1000 mL Inj 1,000 ML @ 30 1000 / 1000 mls/hr IV.SIG .Q24H [facility] Rx#: [id number] Zosyn 3.375 GM Premix 50 ML @ 100 / 100 100 / 100 100 / 100 100 mls/hr IV.SIG Q6H [facility] Rx#: [id number] Oral 0 / 0 600 / 600 Anesthesia Amount 700 / 700 Output: Estimated Blood Loss 20 / 20 Other: # Voids 3 2 4 # Incontinent Voids 1 # Bowel Movements 0 - Constitutional no acute distress - Routine HEENT Exam Head: Present: normocephalic - Routine Abdominal Exam Present: normoactive bowel sounds (Round, right upper quadrant discomfort) <Mellissa Iqbal - Last Filed: 02/25/18 18:16> Vital signs: Vital Signs 02/25/18 08:00 02/25/18 09:44 02/25/18 12:33 Temperature 98.0 F 98.4 F Pulse Rate 104 H 84 Respiratory Rate 19 20 Blood Pressure 151/103 H 141/82 H Pulse Oximetry 91 L 93 L 93 L 02/25/18 12:45 02/25/18 13:00 02/25/18 13:15 Temperature Pulse Rate 75 71 74 Respiratory Rate 22 20 19 Blood Pressure 128/79 129/77 141/84 H Pulse Oximetry 94 L 96 97 02/25/18 13:30 02/25/18 13:31 02/25/18 13:40 Temperature Pulse Rate 86 Respiratory Rate 20 14 16 Blood Pressure 152/94 H Pulse Oximetry 95 02/25/18 13:45 02/25/18 14:00 02/25/18 16:00 Temperature 98 F 97.8 F Pulse Rate 85 75 83 Respiratory Rate 20 18 18 Blood Pressure 135/81 130/76 140/73 Pulse Oximetry 93 L 96 96 02/25/18 20:00 02/26/18 00:00 02/26/18 04:00 Temperature 98.8 F 98.3 F 97.9 F Pulse Rate 117 H 104 H 89 Respiratory Rate 15 16 15 Blood Pressure 162/89 H 124/69 121/79 Pulse Oximetry 97 96 97 Intake & Output 02/25/18 02/26/18 02/26/18 18:59 06:59 18:59 Intake Total 3400 / 3400 2600 / 2600 Output Total 20 / 20 200 / 200 Balance 3380 / 3380 2400 / 2400 Weight 86.5 kg Intake: IV 2099 / 2100 NS Inj 1,000 ML @ 130 mls/hr IV 1000 / 1000 2000 / 2000 .CONT .Q7H42M [facility] Rx#:[id number] LR 1000 mL Inj 1,000 ML @ 30 1000 / 1000 mls/hr IV.SIG .Q24H [facility] Rx#: [id number] Zosyn 3.375 GM Premix 50 ML @ 100 / 100 100 / 100 100 mls/hr IV.SIG Q6H [facility] Rx#: [id number] Oral 600 / 600 500 / 500 Anesthesia Amount 700 / 700 Output: Urine 200 / 200 Estimated Blood Loss Other: # Voids 4 # Incontinent Voids 1 <Darnell Edmond - Last Filed: 02/26/18 07:26> Results - Labs CBC & Chem 7: 02/25/18 05:43 02/25/18 05:43 Laboratory Results - last 24 hr 02/25/18 02/25/18 05:43 05:43 WBC 10.2 RBC 4.19 L Hgb 13.0 Hct 37.7 L MCV 90.0 MCH 31.0 MCHC 34.5 RDW 14.4 Plt Count 165 MPV 8.4 Neut % (Auto) 80.9 H Lymph % (Auto) 9.2 [place] % (Auto) 8.8 H Eos % (Auto) 0.9 Baso % (Auto) 0.2 Neut # (Auto) 8.3 H Lymph # (Auto) 0.9 L [place] # (Auto) 0.9 Eos # (Auto) 0.1 Baso # (Auto) 0.0 WBC Differential . Differential Comment Auto diff final Sodium 142 Potassium 3.6 Chloride 108 H Carbon Dioxide 23.4 Anion Gap 11 BUN 15 Creatinine 0.80 Estimated GFR Greater than 89 Random Glucose 95 Calcium 7.5 L Total Bilirubin 2.6 H AST 15 ALT 27 Alkaline Phosphatase 58 Total Protein 6.2 L Albumin 2.6 L <Mellissa Iqbal - Last Filed: 02/25/18 18:16> - Labs CBC & Chem 7: 02/26/18 04:39 02/25/18 05:43 Laboratory Results - last 24 hr 02/25/18 02/25/18 02/26/18 05:43 05:43 04:39 WBC 10.2 7.5 RBC 4.19 L 4.10 L Hgb 13.0 12.7 L Hct 37.7 L 37.4 L MCV 90.0 91.3 MCH 31.0 30.9 MCHC 34.5 33.9 RDW 14.4 14.4 Plt Count 165 167 MPV 8.4 8.4 Neut % (Auto) 80.9 H 76.1 H Lymph % (Auto) 9.2 12.8 [place] % (Auto) 8.8 H 9.5 H Eos % (Auto) 0.9 1.3 Baso % (Auto) 0.2 0.3 Neut # (Auto) 8.3 H 5.8 Lymph # (Auto) 0.9 L 1.0 [place] # (Auto) 0.9 0.7 Eos # (Auto) 0.1 0.1 Baso # (Auto) 0.0 0.0 WBC Differential . . Differential Comment Auto diff final Auto diff final Sodium 142 Potassium 3.6 Chloride 108 H Carbon Dioxide 23.4 Anion Gap 11 BUN 15 Creatinine 0.80 Estimated GFR Greater than 89 Random Glucose 95 Calcium 7.5 L Total Bilirubin 2.6 H AST 15 ALT 27 Alkaline Phosphatase 58 Total Protein 6.2 L Albumin 2.6 L <Darnell Edmond - Last Filed: 02/26/18 07:26> Assessment and Plan (1) Right upper quadrant abdominal pain Status: Acute Code(s): R10.11 - Right upper quadrant pain (2) Abnormal CT scan, gallbladder Status: Acute Code(s): R93.2 - Abnormal findings on diagnostic imaging of liver and biliary tract (3) Cholecystitis Status: Acute Code(s): K81.9 - Cholecystitis, unspecified - Plan right upper quadrant abdominal pain for the past 3 days. Patient states that he was in his usual state of health up until this point and he had acute onset of pressure sensation which he describes as feeling "locked up". He also denies any bowel movement for the past 3 days and is positive for some fever and chills. Constipation, acute no bowel movement in the last 3 days patient denies any obvious bleeding, hematemesis or dyspepsia but does note some nausea without vomiting. history of a left CVA with right sided paralysis and his fair to poor historian with some of his timing and situation. Patient initially stated not passing gas but then notes that he is passing small amounts. He also was on Coumadin therapy but stopped taking medications approximately 4 months ago due to the fact that he was taking way too many meds. Current labs show WBC count with mild leukocytosis, 11.1, hemoglobin 13.8, bilirubin 2.2, AST [address] scan shows possible cholecystitis and surgical consult is pending. Patient states EGD around 2001 but no previous colonoscopy and states that he refuses to have one. Patient has no family history of colon cancer. There is currently no family in the room but according to the record there is a girlfriend who has been assisting in his care. Gastroenterology was consulted to assist with his abnormal gallbladder ultrasound as well as hyperbilirubinemia. Cholelithiasis, abnormal ultrasound gallbladder possible cholecystitis. Could be related to stones, possibly impacted. Appreciate GS consult. Hyperbilirubinemia, possibly related to obstruction 02/25/2018 patient is currently n.p.o. plan is for laparoscopic cholecystectomy this a.m.. Note MRCP showed no stones, but patient still has elevated bilirubin at 2.6. GI will sign off at this time no further testing or procedures for now. Supportive care Patient was seen per myself and Dr. Edmond, note was written on his behalf <Mellissa Iqbal - Last Filed: 02/25/18 18:16> (1) Right upper quadrant abdominal pain Status: Acute Code(s): R10.11 - Right upper quadrant pain (2) Abnormal CT scan, gallbladder Status: Acute Code(s): R93.2 - Abnormal findings on diagnostic imaging of liver and biliary tract (3) Cholecystitis Status: Acute Code(s): K81.9 - Cholecystitis, unspecified - Attending Attestation Post cholecystectomy , nothing to add at this point. Management per surgical team. Will sign off for now. <Darnell Edmond - Last Filed: 02/26/18 07:26>
[2018-02-26] MEDS: Morphine Inj 4 MG/ML Vial IV.PUSH PRN ×2 (00:58→05:38)
[2018-02-26] MEDS: Piperacil/Tazo 3.375 GM Premix 50 ML IV.SIG SCH (05:37)
[2018-02-26] MEDS: Sod Chloride 0.9% Inj 1,000 ML IV.CONT SCH (05:37)
[2018-02-26 07:23] LABS: Baso % (Auto) 0.3 % (0.0-2.0); Eos # (Auto) 0.1 th/mm3 (0.0-0.4); Eos % (Auto) 1.3 % (0.0-4.0); Hematocrit 37.4 % (39.0-51.0); Hemoglobin 12.7 gm/dL (13.0-17.0); Lymph % (Auto) 12.8 % (9.0-44.0); Mean Corpuscular HGB Conc 33.9 % (32.0-36.0); Mean Corpuscular Hemoglobin 30.9 pg (27.0-34.0); Mean Corpuscular Volume 91.3 fL (80.0-100.0); Mean Platelet Volume 8.4 fL (7.0-11.0); Mono # (Auto) 0.7 th/mm3 (0.0-0.9); Mono % (Auto) 9.5 % (0.0-8.0); Neut # (Auto) 5.8 th/mm3 (1.8-7.7); Neut % (Auto) 76.1 % (16.0-70.0); Platelet Count 167 th/mm3 (150-450); Red Cell Distribution Width 14.4 % (11.6-17.2); White Blood Count 7.5 th/mm3 (4.0-11.0)
[2018-02-26 07:59] LABS: Alanine Aminotransferase 87 U/L (12-78); Albumin 2.3 g/dL (3.4-5.0); Alkaline Phosphatase 185 U/L (45-117); Anion Gap 10 meq/L (5-15); Aspartate Aminotransferase 75 U/L (15-37); Blood Urea Nitrogen 15 mg/dL (7-18); Calcium 7.7 mg/dL (8.5-10.1); Carbon Dioxide 25.4 meq/L (21.0-32.0); Chloride 109 meq/L (98-107); Glomerular Filtration Rate Greater Than 89 mL/min (>89); Glucose,Random 115 mg/dL (74-106); Potassium 3.6 meq/L (3.5-5.1); Sodium 144 meq/L (136-145); Total Protein 5.8 g/dL (6.4-8.2)
--- NOTE | 2018-02-26 09:11 | P.PNGS ---
Subjective Patient reports: feels better, pain is less, tolerating a regular diet, no bowel movement Physical Exam Vital signs: Vital Signs 02/25/18 09:44 02/25/18 12:33 02/25/18 12:45 Temperature 98.4 F Pulse Rate 84 75 Respiratory Rate 20 22 Blood Pressure 141/82 H 128/79 Pulse Oximetry 93 L 93 L 94 L 02/25/18 13:00 02/25/18 13:15 02/25/18 13:30 Temperature Pulse Rate 71 74 86 Respiratory Rate 20 19 20 Blood Pressure 129/77 141/84 H 152/94 H Pulse Oximetry 96 97 95 02/25/18 13:31 02/25/18 13:40 02/25/18 13:45 Temperature Pulse Rate 85 Respiratory Rate 14 16 20 Blood Pressure 135/81 Pulse Oximetry 93 L 02/25/18 14:00 02/25/18 16:00 02/25/18 20:00 Temperature 98 F 97.8 F 98.8 F Pulse Rate 75 83 117 H Respiratory Rate 18 18 15 Blood Pressure 130/76 140/73 162/89 H Pulse Oximetry 96 96 97 02/26/18 00:00 02/26/18 04:00 Temperature 98.3 F 97.9 F Pulse Rate 104 H 89 Respiratory Rate 16 15 Blood Pressure 124/69 121/79 Pulse Oximetry 96 97 Intake & Output 02/25/18 02/26/18 02/26/18 18:59 06:59 18:59 Intake Total 3400 / 3400 2600 / 2600 Output Total 20 / 20 200 / 200 Balance 3380 / 3380 2400 / 2400 Weight 86.5 kg Intake: IV 2100 / 2100 2100 / 2100 NS Inj 1,000 ML @ 130 mls/hr IV 1000 / 1000 2000 / 2000 .CONT .Q7H42M [facility] Rx#:[id number] LR 1000 mL Inj 1,000 ML @ 30 1000 / 1000 mls/hr IV.SIG .Q24H [facility] Rx#: [id number] Zosyn 3.375 GM Premix 50 ML @ 100 / 100 100 / 100 100 mls/hr IV.SIG Q6H [facility] Rx#: [id number] Oral 600 / 600 500 / 500 Anesthesia Amount 700 / 700 Output: Urine 200 / 200 Estimated Blood Loss 20 / 20 Other: # Voids 4 # Incontinent Voids 1 - Routine Abdominal Exam Present: soft, normoactive bowel sounds, tenderness, wound Assessment and Plan - Assessment (1) Cholecystitis Code(s): K81.9 - Cholecystitis, unspecified Status: Acute Plan: 53 year old male with RUQ pain; cholecystitis -GI consult pending -Liver enzymes trending up -MRCP today to evaluate for CBD stone -NPO -Pain control -Will await results of MRCP and GI consult to further make plans for laparoscopic cholecystectomy with primary umbilical hernia repair -All questions answered -Thank you for this consult; We will continue to follow - Plan pod1 lap chika ok to dc home fu 1 week in office
[2018-02-26] MEDS: Lisinopril 5 MG Tablet PO SCH (09:22)
[2018-02-26] MEDS: Gabapentin 100 MG Capsule PO SCH (09:22)
[2018-02-26] MEDS: Baclofen 10 MG Tablet PO SCH (09:22)
[2018-02-26] MEDS: Senna/Docusate Sodium 8.6/50 MG Tablet PO SCH (09:23)
--- NOTE | 2018-02-26 10:50 | P.DS ---
Date of admission: 02/23/18 17:54 Primary care physician: No Primary Care Physician Attending physician on discharge: Tate Morales Anticipated date of discharge: 02/26/18 Brief History from admission: Mr. Mckeon is a 53 yo M with PMH of CVA and cardiomyopathy who presents with 2 days of abdominal pain worse in RUQ; patient suggests pain constant in nature but his girlfriend (at bedside) states that he did not have it yesterday. Patient has also been nauseous with decreased oral intake. Patient reports less voiding and stooling. Pain did not start after a meal. He does not think he has ever had similar pain previously. No vomiting; no blood in stool. No history of abdominal surgery. Patient passing gas. No pain when eating; just nausea. No fevers or chills. On review of PMH and ROS, patient states that he moved from [place] and does not have PCP. 1 year prior, he had CVA and states he was diagnosed with Cardiomyopathy and that he had an abnormal heart rhythm. He states that a pacemaker was recommended but that he did not obtain. Patient also reports being prescribed Warfarin for anticoagulation but is not sure why; he has not been taking for ~1 year+. Patient does not take other home medications with exception of Carvedilol and Lisinopril. He has weakness of RLE and contracture and lack of sensation in RLE. He was prescribed Baclofen and Gabapentin but does not take. Patient denies smoking, drinking, or illicit drugs. ED History: Patient with tachycardia in ED; mild leukocytosis and lactic acid mildly elevated.CT abdomen/pelvis suspicious for cholecystitis. TBILI elevated; other LFT's wnl. Troponin wnl; EKG with LBBB. Patient given Zofran for nausea, IVF, and empiric Zosyn. ED discussed with Dr. Knox; plan for admission to [facility] and GS and GI consultations. DS: Medications - Discharge Medications Prescriptions: hydrocodone-acetaminophen 1 tab PO Q4H PRN #18 tab PRN Reason: acute post op pain exception DS: Summary Hospital Course: 53 yo M with PMH of CVA and cardiomyopathy who presented to the ED on 02/23 with 2 day history of abdominal pain along with nausea and decrease appetite. On admission he met SIRS criteria with possible source as cholecystitis, he was started on IV Zosyn. Labs revealed leukocytosis along with elevated total bilirubin. CT of abdomen pelvis showed no evidence of possible cholecystitis. Gastroenterology was consulted patient underwent MRCP which showed no stones however patient continued to have an elevated total bilirubin. Surgical consult was placed and patient underwent cholecystectomy on 02/25. Leukocytosis resolved, mild anemia noted on today's CBC. Patient's total bilirubin trending down, liver enzymes mildly elevated likely secondary to liver biopsy. Patient has been cleared by general surgery for discharge. He is seen and examined this morning resting in bed comfortably, appears to be in no acute distress. He reports that he just wants to "take a nap". She is eating all of his breakfast this morning and denies any nausea or vomiting. He denies any abdominal pain or discomfort at the moment. Discussed plan for discharge home. - Time Spent with Patient Total time spent providing and/or coordinating discharge services: Less than 30 minutes Exam Vital signs: Vital Signs 02/25/18 12:33 02/25/18 12:45 02/25/18 13:00 Temperature 98.4 F Pulse Rate 84 75 71 Respiratory Rate 20 22 20 Blood Pressure 141/82 H 128/79 129/77 Pulse Oximetry 93 L 94 L 96 02/25/18 13:15 02/25/18 13:30 02/25/18 13:31 Temperature Pulse Rate 74 86 Respiratory Rate 19 20 14 Blood Pressure 141/84 H 152/94 H Pulse Oximetry 97 95 02/25/18 13:40 02/25/18 13:45 02/25/18 14:00 Temperature 98 F Pulse Rate 85 75 Respiratory Rate 16 20 18 Blood Pressure 135/81 130/76 Pulse Oximetry 93 L 96 02/25/18 16:00 02/25/18 20:00 02/26/18 00:00 Temperature 97.8 F 98.8 F 98.3 F Pulse Rate 83 117 H 104 H Respiratory Rate 18 15 16 Blood Pressure 140/73 162/89 H 124/69 Pulse Oximetry 96 97 96 02/26/18 04:00 02/26/18 08:00 Temperature 97.9 F 97.6 F Pulse Rate 89 47 L Respiratory Rate 15 17 Blood Pressure 121/79 135/74 Pulse Oximetry 97 98 Intake & Output 02/25/18 02/26/18 02/26/18 18:59 06:59 18:59 Intake Total 3400 / 3400 2600 / 2600 Output Total 20 / 20 200 / 200 Balance 3380 / 3380 2400 / 2400 Weight 86.5 kg Intake: IV 2100 / 2100 2100 / 2100 NS Inj 1,000 ML @ 130 mls/hr IV 1000 / 1000 1999 / 1999 .CONT .Q7H42M [facility] Rx#:[id number] LR 1000 mL Inj 1,000 ML @ 30 1000 / 1000 mls/hr IV.SIG .Q24H [facility] Rx#: [id number] Zosyn 3.375 GM Premix 50 ML @ 100 / 100 100 / 100 100 mls/hr IV.SIG Q6H [facility] Rx#: [id number] Oral 600 / 600 500 / 500 Anesthesia Amount 700 / 700 Output: Urine 200 / 200 Estimated Blood Loss Other: # Voids 4 # Incontinent Voids 1 Narrative: GENERAL: Well-nourished, well-developed male, slurred speech with right-sided weakness from CVA SKIN: Warm and dry. HEAD: Atraumatic. Normocephalic. EYES: Pupils equal and round. No scleral icterus. No injection or drainage. ENT: No nasal bleeding or discharge. Mucous membranes pink and moist. NECK: Trachea midline. No JVD. CARDIOVASCULAR: Regular rate and rhythm. RESPIRATORY: No accessory muscle use. Clear to auscultation. Breath sounds equal bilaterally. GASTROINTESTINAL: Abdomen soft, non-tender, nondistended. Positive bowel sounds. Steri-Strips noted without any drainage or erythema. MUSCULOSKELETAL: Extremities without clubbing, cyanosis, or edema. Right hand contractures noted. NEUROLOGICAL: Awake and alert, oriented 3. No obvious cranial nerve deficits. Right-sided weakness, slurred speech however understandable. PSYCHIATRIC: Appropriate mood and affect; insight and judgment normal. Results Procedures completed during hospitalization: MRCP 02/24 Cholecystectomy 02/25 Pending studies at discharge: Pending at discharge 02/25/18 12:50 Surgical [PTH] Routine Labs on day of discharge: Labs from last 24 hours 02/26/18 02/26/18 04:39 04:39 WBC 7.5 RBC 4.10 L Hgb 12.7 L Hct 37.4 L MCV 91.3 MCH 30.9 MCHC 33.9 RDW 14.4 Plt Count 167 MPV 8.4 Neut % (Auto) 76.1 H Lymph % (Auto) 12.8 [place] % (Auto) 9.5 H Eos % (Auto) 1.3 Baso % (Auto) 0.3 Neut # (Auto) 5.8 Lymph # (Auto) 1.0 [place] # (Auto) 0.7 Eos # (Auto) 0.1 Baso # (Auto) 0.0 WBC Differential . Differential Comment Auto diff final Sodium 144 Potassium 3.6 Chloride 109 H Carbon Dioxide 25.4 Anion Gap 10 BUN 15 Creatinine 0.81 Estimated GFR Greater than 89 Random Glucose 115 H Calcium 7.7 L Total Bilirubin 2.1 H AST 75 H ALT 87 H Alkaline Phosphatase 185 H Total Protein 5.8 L Albumin 2.3 L - Impressions ITS Impressions Cholangiopancreatography MRI 02/24/18 00:00 CONCLUSION: 1. The gallbladder is mildly distended with some gallbladder wall thickening. No adjacent inflammatory changes are demonstrated. 2. No definite gallstones or biliary tract obstruction. 3. The rest the examination is grossly unremarkable. Discharge Plan - Discharge Disposition Patient Disposition: Discharge Home - Discharge Condition Condition: Fair - Discharge Order Discharge Orders: Discharge Order (Routine); Ordered 02/26/18 Ordered By: Marizol Solano - Physicians Team Primary Care Provider: Primary Care Ruth Oneill Attending Provider: Tate Morales Other Providers: Darnell Edmond MD ; Cedric Knox MD - Rxs /Orders / Referrals /Forms Prescriptions: New hydrocodone-acetaminophen 5-325 mg Tablet 1 tab PO Q4H PRN (Reason: acute post op pain exception ) Qty: 18 RF: 0 Continue atorvastatin 40 mg Tablet 40 mg PO DAILY baclofen 10 mg Tablet 5 mg PO TID carvedilol 3.125 mg Tablet 3.125 mg PO BID gabapentin 100 mg Capsule 100 mg PO TID lisinopril 5 mg Tablet 5 mg PO BID Discontinued fluoxetine 40 mg Capsule 40 mg PO DAILY warfarin 4 mg Tablet 4 mg PO DAILY Referrals: Mauro Cano [Other] - See Instructions (Call to schedule follow up appointment with your Primary Care Physician) Cedric Knox MD [Physician] - See Instructions (Appt set for FridayMar 04 at 1:20PM) Primary Care Ruth Oneill [Primary Care Provider] - See Instructions - Discharge Instructions Patient Printed Instructions: Hydrocodone/Acetaminophen (By mouth), Pain Management After Surgery (DC), Laparoscopic Cholecystectomy (DC), Acute Wound Care (DC) Additional Instructions: Please follow-up with your primary care physician regarding recommendations or indications for Coumadin since he has been off this medication for over a year. Follow-up with a general surgeon as well.
== END 2018-02-26 15:24 | disposition home or self-care (01) ==
LOC: NEDDLT 13:04 → N07 17:54
PROVIDERS: ADMIT Internal Medicine; ATTEND Internal Medicine